=== PATIENT | male | born 1960 | race Caucasian/White ===

== ENCOUNTER 2019-10-19 19:40 | Emergency (ER) | payer OTHER ==
[~2019-10-19] VITALS: Ht 177.8 cm; Wt 70.3 kg
== END 2019-10-19 20:32 | disposition home or self-care (01) ==
LOC: ED 19:40
PROC: 0HQMXZZ Repair Right Foot Skin, External Approach (ICD-10-PCS; principal; 2019-10-19)
DX: S91.311A Laceration without foreign body, right foot, initial encounter (principal); Z23 Encounter for immunization; F17.200 Nicotine dependence, unspecified, uncomplicated; W26.8XXA Contact with other sharp object(s), not elsewhere classified, initial encounter
CPT/HCPCS: 12002; 90471; 90715; 99282-25

== ENCOUNTER 2021-12-12 11:04 | Emergency (ER) | payer OTHER ==
[~2021-12-12] VITALS: Ht 177.8 cm; Wt 67.6 kg
== END 2021-12-12 12:51 | disposition home or self-care (01) ==
LOC: ED 11:04
DX: S80.01XA Contusion of right knee, initial encounter (principal); F17.200 Nicotine dependence, unspecified, uncomplicated; X58.XXXA Exposure to other specified factors, initial encounter
CPT/HCPCS: 99283

== ENCOUNTER 2023-12-24 12:29 | Emergency (ER) | payer OTHER ==
[~2023-12-24] VITALS: Ht 177.8 cm; Wt 68.0 kg
[2023-12-24 13:06] LABS: HEMATOCRIT 41.6 % (35.0-50.0); HEMOGLOBIN 14.5 g/dL (12.0-18.0); MCH 34.6 (27-36); MCHC 34.9 g/dl (30-36); PLATELET COUNT 158 K/uL (140-440); RBC 4.21 M/ul (4.3-5.7); RDW 14.3 (10.5-15.0)
[2023-12-24 13:18] LABS: INR 1.51 (0.80-1.30); PROTIME 17.4 Sec (11.2-14.2)
[2023-12-24 13:24] LABS: ALBUMIN 2.2 g/dL (3.4-5.0); ALBUMIN/GLOBULIN RATIO 0.39 (1.1-2.4); ALCOHOL, MEDICAL <3 ng/dL (<3); ALKALINE PHOSPHATASE 182 U/L (46-116); ALT (SGPT) 34 U/L (14-59); ANION GAP 4.9 (7-21); AST (SGOT) 99 U/L (15-37); BILIRUBIN, TOTAL 3.2 ng/dL (0.2-1.0); BUN/CREATININE RATIO 19.54 (6.0-28.6); CALCIUM 8.4 mg/dL (8.5-10.1); CARBON DIOXIDE 36 mmol/L (21-32); CHLORIDE 96 mmol/L (98-107); CREATININE, SERUM 0.87 mg/dL (0.70-1.30); GLOMERULAR FILTRATION RATE,EST 96 mL/min (>60); POTASSIUM 2.9 mmol/L (3.5-5.1); PROTEIN, TOTAL 7.8 g/dL (6.4-8.2); UREA NITROGEN 17 mg/dL (7-18)
[2023-12-24 13:30] LABS: BASOPHILS, MANUAL DIFF 1; EOSINOPHILS, MANUAL DIFF 1; LYMPHOCYTES, MANUAL DIFF 44; MONOCYTES, MANUAL DIFF 3; NEUTROPHILS, MANUAL DIFF 51
[2023-12-24 13:35] LABS: LACTIC ACID, BLOOD 2.1 mmol/L (0.4-2.0)
[2023-12-24] MEDS ORDERED: POTASSIUM CHLORIDE 20 MEQ/15 ML CUP PO ONE (14:00)
[2023-12-24 16:33] LABS: APPEARANCE, BODY FLUID SLIGHTLY CLOUDY; MONONUCLEAR CELLS, BODY FLUID 96; PMNS, BODY FLUID 4; RBC, BODY FLUID 478; WBC, BODY FLUID 300
[2023-12-24 16:34] LABS: SOURCE, BODY FLUID PERITONEAL
[2023-12-24 18:16] VITALS: BP 100/57
[2023-12-27 03:41] LABS: LACTATE DEHYDROGENASE TOTAL,BF 37 U/L (()); LDH FLUID SOURCE Ascites fluid (())
== END 2023-12-24 18:18 | disposition home or self-care (01) ==
LOC: ED 12:29
PROVIDERS: Emergency Medicine
DX: K74.60 Unspecified cirrhosis of liver (principal); E87.6 Hypokalemia; E80.7 Disorder of bilirubin metabolism, unspecified; R74.01 Elevation of levels of liver transaminase levels; F10.10 Alcohol abuse, uncomplicated; F17.200 Nicotine dependence, unspecified, uncomplicated
CPT/HCPCS: 36415; 49083; 80053; 82803; 83605; 83690; 83735; 85025; 85610; 87205; 89051; 99284-25; A9270; G0480

== ENCOUNTER 2024-01-03 10:24 | Emergency (ER) | payer OTHER ==
[~2024-01-03] VITALS: Ht 177.8 cm; Wt 67.2 kg
--- OUTSIDE RECORDS SUMMARY | 2024-01-03 10:30 | XMS ---
PreManage Notification: CHANTEL JEREZ Security Vp Human Resources Events No recent Security Events currently on file CRITERIA MET - [facility] - 2 Visits in 30 Days CARE PROVIDERS There are no care providers on record at this time. Leonel has no Care Guidelines for this patient. Opal VISIT COUNT (12 MO.) 2 [facility] TOTAL 2 NOTE: Visits indicate total known visits. ED/C VISIT TRACKING (12 MO.) 01/03/2024 10:24 [facility] TYPE[place] Emergency COMPLAINT: - ABDOMINAL PAIN 12/24/2023 12:[address] [facility] [place] TYPE: Emergency COMPLAINT: - LOSS OF APPETITE DIAGNOSES: - Alcohol abuse, uncomplicated - Disorder of bilirubin metabolism, unspecified - Elevation of levels of liver transaminase levels - Hypokalemia - Intra-abdominal and pelvic swelling, mass and lump, unspecified site - Nicotine dependence, unspecified, uncomplicated - Unspecified cirrhosis of liver INPATIENT VISIT TRACKING (12 MO.) No inpatient visits to display in this time frame [email or web address]
[2024-01-03] MEDS ORDERED: ondansetron HCL 4 MG/2 ML VIAL IV ONE (11:00)
[2024-01-03] MEDS ORDERED: HYDROmorphone HCL 1 MG/ML SYR IV ONE (11:00)
[2024-01-03 11:38] LABS: BASOPHILS 0.6 % (0-2); EOSINOPHILS 0.3 % (0-6); HEMATOCRIT 35.5 % (35.0-50.0); HEMOGLOBIN 12.4 g/dL (12.0-18.0); LYMPHOCYTES 28.3 % (24-44); MCH 34.3 (27-36); MCHC 34.9 g/dl (30-36); MCV 98.1 fl (81-99); MONOCYTES 0.5 % (0-12); NEUTROPHILS 70.3 % (39-80); PLATELET COUNT 217 K/uL (140-440); RBC 3.62 M/ul (4.3-5.7); RDW 14.8 (10.5-15.0)
[2024-01-03 11:48] LABS: INR 1.43 (0.80-1.30)
[2024-01-03 11:50] LABS: PARTIAL THROMBOPLASTIN TIME 37.5 Sec (22.9-41.3)
[2024-01-03 11:53] LABS: ALBUMIN/GLOBULIN RATIO 0.38 (1.1-2.4); ANION GAP 10.6 (7-21); BILIRUBIN, TOTAL 2.1 ng/dL (0.2-1.0); BUN/CREATININE RATIO 40.97 (6.0-28.6); CALCIUM 8.2 mg/dL (8.5-10.1); CREATININE, SERUM 1.44 mg/dL (0.70-1.30); POTASSIUM 4.6 mmol/L (3.5-5.1); PROTEIN, TOTAL 7.2 g/dL (6.4-8.2)
[2024-01-03] MEDS ORDERED: LIDOCAINE 2% VISCOUS 6 ML SYR TOP ONE (15:15)
[2024-01-03 15:43] LABS: BILIRUBIN, URINE NEGATIVE (negative); BLOOD/HGB, URINE NEGATIVE (Negative); KETONE, URINE NEGATIVE (Negative); LEUK ESTERASE, URINE NEGATIVE (negative); NITRITE, URINE NEGATIVE (negative); PH, URINE 5.5 (5-7)
[2024-01-03] MEDS ORDERED: CONSTULOSE10 GM/15 M PO (16:14)
[2024-01-03 16:38] VITALS: BP 121/65
== END 2024-01-03 16:39 | disposition home or self-care (01) ==
LOC: ED 10:24
PROVIDERS: Emergency Medicine
DX: R18.8 Other ascites (principal); K72.10 Chronic hepatic failure without coma; R33.9 Retention of urine, unspecified; E72.20 Disorder of urea cycle metabolism, unspecified; F17.200 Nicotine dependence, unspecified, uncomplicated
CPT/HCPCS: 36415; 49083; 51702; 51798; 80053; 81003; 82140; 83690; 85025; 85610; 85730; 99284-25; J1171; J2405

== ENCOUNTER 2024-01-04 23:31 | Emergency (ER) | payer OTHER ==
[~2024-01-04] VITALS: Ht 177.8 cm; Wt 64.4 kg
[~2024-01-04 23:31] MED LIST: CONSTULOSE10 GM/15 M PO
--- OUTSIDE RECORDS SUMMARY | 2024-01-04 23:38 | XMS ---
PreManage Notification: CHANTEL JEREZ Security [employer] Events No recent Security Events currently on file CRITERIA MET - [facility] - 2 Visits in 30 Days CARE PROVIDERS There are no care providers on record at this time. Leonel has no Care Guidelines for this patient. Opal VISIT COUNT (12 MO.) 3 [facility] [place] [facility] TOTAL 3 NOTE: Visits indicate total known visits. ED/C VISIT TRACKING (12 MO.) 01/04/2024 23:32 [facility] [place] TYPE: Emergency COMPLAINT: - ABD PAIN 01/03/2024 10:24 [facility] [place] TYPE: Emergency COMPLAINT: - ABDOMINAL PAIN DIAGNOSES: - Chronic hepatic failure without coma - Disorder of urea cycle metabolism, unspecified - Nicotine dependence, unspecified, uncomplicated - Other ascites - Retention of urine, unspecified - Unspecified abdominal pain 12/24/2023 12:29 [facility] [place] TYPE: Emergency COMPLAINT: - LOSS OF APPETITE DIAGNOSES: - Alcohol abuse, uncomplicated - Disorder of bilirubin metabolism, unspecified - Elevation of levels of liver transaminase levels - Hypokalemia - Intra-abdominal and pelvic swelling, mass and lump, unspecified site - Nicotine dependence, unspecified, uncomplicated - Unspecified cirrhosis of liver INPATIENT VISIT TRACKING (12 MO.) No inpatient visits to display in this time frame [email or web address]
[2024-01-04 23:54] LABS: HEMATOCRIT 34.2 % (35.0-50.0); HEMOGLOBIN 11.6 g/dL (12.0-18.0); MCH 33.7 (27-36); MCV 99.1 fl (81-99); PLATELET COUNT 196 K/uL (140-440); RBC 3.45 M/ul (4.3-5.7)
[2024-01-04 23:57] LABS: BILIRUBIN, URINE NEGATIVE (negative); BLOOD/HGB, URINE LARGE (Negative); KETONE, URINE TRACE (Negative); LEUK ESTERASE, URINE SMALL (negative); NITRITE, URINE NEGATIVE (negative); PH, URINE 5.5 (5-7)
[2024-01-05 00:06] LABS: EPITHELIAL CELLS, URINE SQUAMOUS 1+ /lpf (0-1+); RED BLOOD CELLS, URINE >50 /hpf (0-5)
[2024-01-05 00:07] LABS: BACTERIA, URINE RARE /hpf (negative); CASTS, URINE NONE SEEN \\lpf; CRYSTALS, URINE NONE SEEN (0-1+)
[2024-01-05 00:08] LABS: COLLECTION TYPE, URINE CLEAN CATCH; REFLEX CULTURE, URINE No (No)
[2024-01-05 00:09] LABS: ALBUMIN/GLOBULIN RATIO 0.41 (1.1-2.4); ANION GAP 11.7 (7-21); BILIRUBIN, TOTAL 1.8 ng/dL (0.2-1.0); BUN/CREATININE RATIO 44.37 (6.0-28.6); CALCIUM 8.3 mg/dL (8.5-10.1); CREATININE, SERUM 1.51 mg/dL (0.70-1.30); POTASSIUM 4.7 mmol/L (3.5-5.1); PROTEIN, TOTAL 6.9 g/dL (6.4-8.2)
[2024-01-05 00:15] LABS: INR 1.45 (0.80-1.30); PROTIME 17.3 Sec (11.2-14.2)
[2024-01-05] MEDS ORDERED: ondansetron HCL 4 MG/2 ML VIAL IV ONE (00:15)
[2024-01-05] MEDS ORDERED: HYDROmorphone HCL 1 MG/ML SYR IV PRN (00:15)
[2024-01-05 00:16] LABS: BANDS, MANUAL DIFF 2; LYMPHOCYTES, MANUAL DIFF 27; MONOCYTES, MANUAL DIFF 1; NEUTROPHILS, MANUAL DIFF 62; OTHER, MANUAL DIFF 8
[2024-01-05 00:17] LABS: PARTIAL THROMBOPLASTIN TIME 36.6 Sec (22.9-41.3)
[2024-01-05] MEDS ORDERED: PIPERACILLIN/TAZOBACTAM 4.5 GM in DEXTROSE 5% 100 ML IV ONE (00:30)
[2024-01-05] MEDS ORDERED: PIPERACILLIN/TAZOBACTAM 4.5 GM VIAL ONE (00:51)
[2024-01-05 01:02] LABS: LACTIC ACID, BLOOD 2.1 mmol/L (0.4-2.0)
[2024-01-05] MEDS ORDERED: HYDROmorphone HCL 2 MG HOME.PACK PO ONE (02:00)
[2024-01-05] MEDS ORDERED: DILAUDID2 MG PO (02:06)
[2024-01-05] MEDS ORDERED: CIPRO500 MG PO (02:07)
[2024-01-05] MEDS ORDERED: METRONIDAZOLE500 MG PO (02:07)
[2024-01-05 08:55] VITALS: BP 111/66
== END 2024-01-05 08:00 | disposition home or self-care (01) ==
LOC: ED 23:31
PROVIDERS: Emergency Medicine
DX: A41.9 Sepsis, unspecified organism (principal); K72.10 Chronic hepatic failure without coma; K70.31 Alcoholic cirrhosis of liver with ascites; F17.200 Nicotine dependence, unspecified, uncomplicated; Z86.718 Personal history of other venous thrombosis and embolism; Z79.899 Other long term (current) drug therapy
CPT/HCPCS: 36415; 74177; 80053; 81001; 82140; 83605; 83690; 85025; 85610; 85730; 87040; 96375; 99284-25; G0480; J1171; J2405; J2543; Q9967